=== PATIENT | male | born 1965 | race Caucasian/White ===

== ENCOUNTER 2019-05-21 13:42 | Emergency (ER) | payer OTHER ==
[~2019-05-21] VITALS: Ht 182.9 cm; Wt 89.5 kg
[2019-05-21 13:45] VITALS: BP 111/74
== END 2019-05-21 16:25 | disposition home or self-care (01) ==
LOC: ED 15:03
DX: S81.812A Laceration without foreign body, left lower leg, initial encounter (principal); T81.30XA Disruption of wound, unspecified, initial encounter; W19.XXXA Unspecified fall, initial encounter; Y93.89 Activity, other specified; Y92.89 Other specified places as the place of occurrence of the external cause; Y99.8 Other external cause status
CPT/HCPCS: 12032